=== PATIENT | male | born 1960 | race Two or more races ===

== ENCOUNTER 2018-09-10 15:24 | Inpatient (IN) | payer OTHER ==
[2018-09-10 17:48] VITALS: BMI 37.3
--- NOTE | 2018-09-10 18:07 | HP ---
CIWA Score Nausea/Vomitin-Mild Nausea/No Vomiting Muscle Tremors: None Anxiety: 2 Agitation: 0-Normal Activity Paroxysmal Sweats: No Perspiration Orientation: 0-Oriented Tacttile Disturbances: 0-None Auditory Disturbances: 0-None Visual Disturbances: 0-None Headache: 3-Moderate CIWA-Ar Total Score: 6 - Admission Criteria OASAS Guidelines: Admission for Medically Managed Detox: Requires at least one of the followin. CIWA greater than 12 2. Seizures within the past 24 hours 3. Delirium tremens within the past 24 hours 4. Hallucinations within the past 24 hours 5. Acute intervention needed for co occurring medical disorder 6. Acute intervention needed for co occurring psychiatric disorder 7. Severe withdrawal that cannot be handled at a lower level of care (continued vomiting, continued diarrhea, abnormal vital signs) requiring intravenous medication and/or fluids 8. Admission ROS [facility] Allergies/Adverse Reactions: Allergies Allergy/AdvReac Type Severity Reaction Status Date / Time No Known Drug Allergies Allergy Unknown Verified 09/10/18 21:26 lactose [Lactose] AdvReac Unknown LACTOSE Verified 09/10/18 21:26 INTOLERANCE TURKEY Allergy Intermediate diarrhea Uncoded 09/10/18 21:26 History of Present Illness: pt here requesting detox from etoh use , reports 4 beers /day , at most 12 beers/day , latest 2 days ago , reports drinking x 1 week, prior to which he was sober " I was too busy working " . Denies seizures, blackouts, tremors , reports he start drinking around 2 pm, reports feeling angry if not drinking , anxiety , cannot go to work . Used to be in outpt program , stopped going several months ago cocaine : 40-80 $ /day denies IVDU , cocaine use x 20 years cannabis - w/ cocaine and etoh use . benzo : denies use tobacco : occasional 1-2 cigs/day , | Reference #: [id number] There are no results for the search terms that you entered PMHx : asthma since ( [place]/ [place] ) PSHx : bilateral inguinal hernia PSych : denies. denies current SI / HI Meds : Lamisil for nail fungus , Imitrex for NASSAR . SHx : lives alone , worked IT until 1 week ago Exam Limitations: No Limitations - Ebola screening Have you traveled outside of the country in the last 21 days: No Have you had contact with anyone from an Ebola affected area: No Have you been sick,other than usual withdrawal symptoms: No Do you have a fever: No - Review of Systems Constitutional: See HPI EENT: reports: Other (glasses) Respiratory: reports: No Symptoms reported Cardiac: reports: No Symptoms Reported GI: reports: No Symptoms Reported : reports: No Symptoms Reported Musculoskeletal: reports: No Symptoms Reported Integumentary: reports: No Symptoms Reported Neuro: reports: See HPI Endocrine: reports: No Symptoms Reported Psychiatric: reports: Orientated x3 Patient History - Patient Medical History Hx Anemia: Yes (NO CURRENT TX) Hx Asthma: Yes (MDI) Hx Chronic Obstructive Pulmonary Disease (COPD): No Hx Cancer: No Hx Cardiac Disorders: No Hx Congestive Heart Failure: No Hx Hypertension: No Hx Hypercholesterolemia: No Hx Pacemaker: No HX Cerebrovascular Accident: No Hx Seizures: No Hx Dementia: No Hx Diabetes: No Hx Gastrointestinal Disorders: No Hx Liver Disease: No Hx Genitourinary Disorders: No Hx Sexually Transmitted Disorders: No Hx Renal Disease (ESRD): No Hx Thyroid Disease: No Hx Human Immunodeficiency Virus (HIV): No (NEGATIVE HX) Hx Hepatitis C: No Hx Depression: No Hx Suicide Attempt: No (DENIES) Hx Bipolar Disorder: No Hx Schizophrenia: No - Patient Surgical History Past Surgical History: Yes Hx Neurologic Surgery: No Hx Cataract Extraction: No Hx Cardiac Surgery: No Hx Lung Surgery: No Hx Breast Surgery: No Hx Breast Biopsy: No Hx Abdominal Surgery: Yes (sx for bleeding ulcer) Hx Appendectomy: No Hx Cholecystectomy: No Hx Genitourinary Surgery: No Hx Section: No Hx Orthopedic Surgery: No Other Surgical History: bilateral inguinal hernia repair, hemorrhoidectomy 2005 Anesthesia Reaction: No - PPD History Results: CXR NEEDED - Smoking Cessation Smoking history: Current every day smoker Have you smoked in the past 12 months: No Aproximately how many cigarettes per day: 2 Hx Chewing Tobacco Use: No Initiated information on smoking cessation: No Family Disease History - Family Disease History Family Disease History: Other: Mother (ASTHMA) Admission Physical Exam BHS - Vital Signs Vital Signs: Vital Signs - 24 hr 09/10/18 17:46 Temperature 97.3 F L Pulse Rate 82 Respiratory 18 Rate Blood Pressure 108/62 - Physical General Appearance: Yes: No Apparent Distress, Disheveled HEENTM: Yes: EOMI, Hearing grossly Normal, Normocephalic, Normal Voice Respiratory: Yes: Chest Non-Tender, Lungs Clear, Normal Breath Sounds Neck: Yes: No masses,lesions,Nodules, Trachea in good position Cardiology: Yes: Regular Rhythm, Regular Rate, S1, S2 Abdominal: Yes: Non Tender, Soft Back: Yes: Normal Inspection Musculoskeletal: Yes: full range of Motion, Gait Steady Extremities: Yes: Normal Capillary Refill, Non-Tender Neurological: Yes: Fully Oriented, Alert, Motor Strength 5/5 Integumentary: Yes: Normal Color, Dry - Diagnostic (1) Cocaine dependence, uncomplicated Current Visit: Yes Status: Chronic (2) Alcohol abuse Current Visit: Yes Status: Acute BHS Breath Alcohol Content Breath Alcohol Content: 0 Urine Drug Screen - Results Drug Screen Negative: No Urine Drug Screen Results: THC-Marijuana, RASTA-Cocaine, BZO-Benzodiazepines Inpatient Rehab Admission - Rehab Decision to Admit Inpatient rehab admission?: Yes - Initial Determination Are CD services needed?: Yes Free of communicable disease: Yes Not in need of hospitalization: Yes - Rehab Admission Criteria Previous failed treatment: Yes Poor recovery environment: No Comorbidities: No Lacks judgement: Yes Patient is meeting Inpatient Rehab admission criteria:: Yes
[2018-09-10] MEDS ORDERED: MAGNESIUM HYDROX 2400MG/30ML ORAL SUSPENSION 30 ML CUP PO PRN (23:26)
[2018-09-10] MEDS ORDERED: MAG HYDROX/AL HYDROX/SIMETH 30 ML UNIT-DOSE CUP PO PRN (23:26)
[2018-09-10] MEDS ORDERED: NICOTINE POLACRILEX 2 MG GUM BC PRN (23:26)
[2018-09-10] MEDS ORDERED: MENTHOL/PHENOL 1 EACH UD MM PRN (23:26)
[2018-09-10] MEDS ORDERED: MAGNESIUM CITRATE 300 ML BOTTLE PO PRN (23:26)
[2018-09-10] MEDS ORDERED: P-EPHED 60MG/TRIPROLIDI 2.5MG TABLET PO PRN (23:26)
[2018-09-10] MEDS ORDERED: LOPERAMIDE HCL 2 MG CAPSULE PO PRN (23:26)
[2018-09-10] MEDS ORDERED: IBUPROFEN 400 MG TABLET (FP) PO PRN (23:26)
[2018-09-11] MEDS: guaiFENesin 200 MG/10 ML 10 ML UNIT-DOSE CUPS PO PRN ×3 (06:08→22:52)
[2018-09-11] MEDS: ALBUTEROL SO4 8 GM HFA INHALER IH PRN ×4 (06:25→22:50)
--- NOTE | 2018-09-11 10:25 | PN ---
[facility] Progress Note Note: CXR from [facility] shows atelectasis but no indication of TB. CXR cancelled, patient asymptomatic for TB.
[2018-09-11] MEDS: PRENATAL VITAMINS W/ FOLIC ACID TABLET (FP) PO SCH (10:44)
[2018-09-11] MEDS: NICOTINE 14 MG/24 HOURS TOPICAL PATCH TD SCH (10:44)
[2018-09-11 11:08] LABS: HEMATOCRIT 41.3 % (35.4-49); HEMOGLOBIN 14.2 GM/dL (11.7-16.9); MCH 30.2 pg (25.7-33.7); MCHC 34.3 g/dl (32.0-35.9); MEAN CELL VOLUME 87.9 fl (80-96); MEAN PLT VOLUME 8.4 fl (7.5-11.1); PLATELET COUNT 218 K/MM3 (134-434); RDW 14.1 % (11.9-15.9); WHITE BLOOD COUNT 5.4 K/mm3 (4.0-10.0)
[2018-09-11 11:18] LABS: EPI CELLS 1.2 /HPF (FEW); HYALINE CASTS 3 /hpf (NEGATIVE); PH,URINE 7.5 (5.0-8.0); URINE APPEARANCE CLEAR; URINE BACTERIA 5.238 /hpf (NEGATIVE); URINE BILIRUBIN NEGATIVE (<2.0 mg/dL); URINE COLOR YELLOW; URINE GLUCOSE (UA) NEGATIVE (NEGATIVE); URINE KETONE NEGATIVE (NEGATIVE); URINE LEUK ESTERASE NEGATIVE (NEGATIVE); URINE NITRITE NEGATIVE (NEGATIVE); URINE PROTEIN NEGATIVE (NEGATIVE); URINE RBC 3 /hpf (0-3); URINE WBC 1 /hpf (3-5)
[2018-09-11 11:32] LABS: ALBUMIN 3.4 g/dl (3.4-5.0); ALK PHOS 85 U/L (45-117); ANION GAP 8 MMOL/L (8-16); BILIRUBIN,TOTAL 0.5 mg/dL (0.2-1); BLOOD UREA NITROGEN 15 mg/dL (7-18); CALCIUM 8.4 mg/dL (8.5-10.1); CHLORIDE 108 mmol/L (98-107); CO2 25 mmol/L (21-32); CREATININE 1.1 mg/dL (0.55-1.3); GLUCOSE,RANDOM 122 mg/dL (74-106); POTASSIUM 3.9 mmol/L (3.5-5.1); SGOT/AST 28 U/L (15-37); SGPT/ALT 61 U/L (13-61); SODIUM 140 mmol/L (136-145); TOT PROT 6.2 g/dl (6.4-8.2)
[2018-09-11] MEDS: THIAMINE HCL 100 MG TABLET (FP) PO SCH (22:01)
[2018-09-12] MEDS: ALBUTEROL SO4 8 GM HFA INHALER IH PRN ×3 (07:16→19:32)
[2018-09-12] MEDS: PRENATAL VITAMINS W/ FOLIC ACID TABLET (FP) PO SCH (10:06)
[2018-09-12] MEDS: NICOTINE 14 MG/24 HOURS TOPICAL PATCH TD SCH (10:06)
[2018-09-12] MEDS: THIAMINE HCL 100 MG TABLET (FP) PO SCH (21:34)
[2018-09-12] MEDS: MELATONIN 5 MG TABLETS PO PRN (21:35)
[2018-09-13] MEDS: guaiFENesin 200 MG/10 ML 10 ML UNIT-DOSE CUPS PO PRN (01:01)
[2018-09-13] MEDS: NICOTINE 14 MG/24 HOURS TOPICAL PATCH TD SCH (10:49)
[2018-09-13] MEDS: PRENATAL VITAMINS W/ FOLIC ACID TABLET (FP) PO SCH (10:49)
[2018-09-13] MEDS: ALBUTEROL SO4 8 GM HFA INHALER IH PRN (12:05)
[2018-09-13] MEDS: THIAMINE HCL 100 MG TABLET (FP) PO SCH (21:15)
[2018-09-13] MEDS: MELATONIN 5 MG TABLETS PO PRN (21:15)
[2018-09-13] MEDS: ACETAMINOPHEN 325 MG TABLET (FP) PO PRN (21:16)
[2018-09-14] MEDS: ACETAMINOPHEN 325 MG TABLET (FP) PO PRN ×3 (07:41→18:37)
[2018-09-14] MEDS: PRENATAL VITAMINS W/ FOLIC ACID TABLET (FP) PO SCH (10:02)
[2018-09-14] MEDS: NICOTINE 14 MG/24 HOURS TOPICAL PATCH TD SCH (10:04)
[2018-09-14] MEDS: ALBUTEROL SO4 8 GM HFA INHALER IH PRN ×2 (11:45→17:07)
[2018-09-14] MEDS: THIAMINE HCL 100 MG TABLET (FP) PO SCH (21:49)
[2018-09-15] MEDS: guaiFENesin 200 MG/10 ML 10 ML UNIT-DOSE CUPS PO PRN (00:28)
[2018-09-15] MEDS: ALBUTEROL SO4 8 GM HFA INHALER IH PRN ×2 (06:24→17:09)
--- NOTE | 2018-09-15 09:09 | PN ---
[facility] Progress Note Note: PATIENT SEEN FOR C/O COUGHING, MAINLY AT NIGHT. PATIENT DENIES SOB, PHLEGM, FEVER AND CHEST PAIN. HAS H/O ASTHMA Laboratory Tests 09/11/18 09/11/18 09/11/18 07:30 08:00 08:00 WBC 5.4 RBC 4.70 Hgb 14.2 Hct 41.3 MCV 87.9 MCH 30.2 MCHC 34.3 RDW 14.1 Plt Count 218 MPV 8.4 Sodium 140 Potassium 3.9 Chloride 108 H Carbon Dioxide 25 Anion Gap 8 BUN 15 Creatinine 1.1 Creat Clearance w eGFR 69.24 Random Glucose 122 H Calcium 8.4 L Total Bilirubin 0.5 AST 28 ALT 61 Alkaline Phosphatase 85 Total Protein 6.2 L Albumin 3.4 Urine Color Yellow Urine Appearance Clear Urine pH 7.5 D Ur Specific [place] 1.022 Urine Protein Negative Urine Glucose (UA) Negative Urine Ketones Negative Urine Blood Negative Urine Nitrite Negative Urine Bilirubin Negative Urine Urobilinogen 1.0 Ur Leukocyte Esterase Negative Urine WBC (Auto) 1 Urine RBC (Auto) 3 Urine Casts (Auto) 3 U Epithel Cells (Auto) 1.2 Urine Bacteria (Auto) 5.238 RPR Titer 09/11/18 08:00 WBC RBC Hgb Hct MCV MCH MCHC RDW Plt Count MPV Sodium Potassium Chloride Carbon Dioxide Anion Gap BUN Creatinine Creat Clearance w eGFR Random Glucose Calcium Total Bilirubin AST ALT Alkaline Phosphatase Total Protein Albumin Urine Color Urine Appearance Urine pH Ur Specific [place] Urine Protein Urine Glucose (UA) Urine Ketones Urine Blood Urine Nitrite Urine Bilirubin Urine Urobilinogen Ur Leukocyte Esterase Urine WBC (Auto) Urine RBC (Auto) Urine Casts (Auto) U Epithel Cells (Auto) Urine Bacteria (Auto) RPR Titer Nonreactive Vital Signs Temperature 98.1 F 09/15/18 06:59 Pulse Rate 85 09/15/18 06:59 Respiratory Rate 18 09/15/18 06:59 Blood Pressure 106/66 09/15/18 06:59 O2 Sat by Pulse Oximetry (%) PE: ALERT AND ORIENTED X 3 SKIN: WARM AND DRY CAR: S1S2,RRR, HR 98 RESP: CTA BL,NO WHEEZING, RHONCHI, O2 SATS 98% EXT FULL ROM, AMB AD YUMIKO A/P: DRY COUGH LIKELY R/T ASTHMA CONTINUE ALBUTEROL INH PRN ROBITUSSIN NEEDED ADD SINGULAIR 10MG HS MONITOR CLINICALLY
[2018-09-15] MEDS: PRENATAL VITAMINS W/ FOLIC ACID TABLET (FP) PO SCH (09:53)
[2018-09-15] MEDS: ACETAMINOPHEN 325 MG TABLET (FP) PO PRN (09:54)
[2018-09-15] MEDS: NICOTINE 14 MG/24 HOURS TOPICAL PATCH TD SCH (10:47)
[2018-09-15] MEDS: MONTELUKAST NA 10 MG TABLET PO SCH (21:17)
[2018-09-15] MEDS: MELATONIN 5 MG TABLETS PO PRN (21:17)
[2018-09-15] MEDS: THIAMINE HCL 100 MG TABLET (FP) PO SCH (21:18)
[2018-09-16] MEDS: ALBUTEROL SO4 8 GM HFA INHALER IH PRN (06:33)
[2018-09-16] MEDS: PRENATAL VITAMINS W/ FOLIC ACID TABLET (FP) PO SCH (10:03)
[2018-09-16] MEDS: NICOTINE 14 MG/24 HOURS TOPICAL PATCH TD SCH (10:04)
[2018-09-16] MEDS: MELATONIN 5 MG TABLETS PO PRN (21:45)
[2018-09-16] MEDS: THIAMINE HCL 100 MG TABLET (FP) PO SCH (21:45)
[2018-09-16] MEDS: MONTELUKAST NA 10 MG TABLET PO SCH (21:45)
[2018-09-16] MEDS: ACETAMINOPHEN 325 MG TABLET (FP) PO PRN (21:46)
[2018-09-17] MEDS: ALBUTEROL SO4 8 GM HFA INHALER IH PRN (06:33)
[2018-09-17 06:59] VITALS: BP 107/69; PULSE 76; TEMP 98.1
[2018-09-17] MEDS: PRENATAL VITAMINS W/ FOLIC ACID TABLET (FP) PO SCH (09:24)
[2018-09-17] MEDS: ACETAMINOPHEN 325 MG TABLET (FP) PO PRN (09:25)
[2018-09-17] MEDS: NICOTINE 14 MG/24 HOURS TOPICAL PATCH TD SCH (09:27)
--- NOTE | 2018-09-17 19:15 | PN ---
[facility] Progress Note Note: Pt was here for 1 week of rehab for alcohol , crack cocaine, THC. Says everything went well. Says he has a lot of things to do- including work related issues. Pt states he needs an asthma pump- ordered. Pt has a PCP with whom he will f/u.
== END 2018-09-17 19:20 | disposition home or self-care (01) | DRG 772 ==
LOC: YASAS 15:24 → Y3W 20:54 → Y5N 09-11 15:00 → Y3W 09-11 15:02
PROVIDERS: ADMIT Neuromusculoskeletal Medicine & OMM; ATTEND Neuromusculoskeletal Medicine & OMM
PROC: HZ42ZZZ Group Counseling for Substance Abuse Treatment, Cognitive-Behavioral (ICD-10-PCS; principal; 2018-09-10)
DX: F14.20 Cocaine dependence, uncomplicated (principal); F10.10 Alcohol abuse, uncomplicated; F12.20 Cannabis dependence, uncomplicated; F17.210 Nicotine dependence, cigarettes, uncomplicated; R05 Cough; J45.909 Unspecified asthma, uncomplicated
CPT/HCPCS: 36415; 71046-TC-FY; 80053; 81003; 85027; 86593